=== PATIENT | female | born 1950 | race Caucasian/White ===

== ENCOUNTER 2016-05-18 13:52 | Inpatient (IN) | payer BC, MEDICARE ==
[~2016-05-18 13:52] MED LIST: ADVAIR 1001 DISK W/D; ADVAIR 2501 DISK W/D; ALBUTEROL17 GM; CLARITIN-D1 TAB.SR; SINGULAIR10 MG; XALATAN2.5 ML
[2016-05-18] MEDS ORDERED: SINGULAIR10 M1 PO (14:25)
[2016-05-18] MEDS ORDERED: ADVAIR 100-501 EACH PO (14:25)
[2016-05-18] MEDS ORDERED: CLARITIN-D 241 EAC2 PO (14:26)
[2016-05-18] MEDS ORDERED: XALATAN2.5 M1 LEFT EYE (14:27)
[2016-05-18] MEDS ORDERED: PROAIR RESPICL90 MCG INH (14:28)
[2016-05-18] MEDS ORDERED: PRAVACHOL40 M1 PO (14:37)
[2016-05-18] MEDS ORDERED: GLUCOPHAGE500 M3 PO (14:50)
[2016-05-18] MEDS ORDERED: PRINIVIL5 M1 PO (14:50)
[2016-05-18 17:55] LABS: ANION GAP 10 mmol/L (0-20); BLOOD UREA NITROGEN 22 mg/dl (6-24); CALCIUM 8.3 mg/dl (8.5-10.5); CARBON DIOXIDE-VENOUS 25 mmol/L (22-32); CHLORIDE 98 mmol/l (96-110); CREATININE 1.41 mg/dl (0.50-1.10); GLUCOSE 210 mg/dL (70-110); PHOSPHOROUS 2.3 mg/dl (2.5-4.9); POTASSIUM 4.4 mmol/L (3.7-5.1); SODIUM 129 mmol/L (135-145); eGFR VALUE FOR BLACK 45 mL/Min
[2016-05-18 17:59] LABS: TSH-THYROID STIMULATING HORM. 2.58 uIU/ml (0.40-3.80)
[2016-05-18 18:04] LABS: OSMOLALITY 274 mOsm/kg (275-295)
[2016-05-19 07:11] LABS: ALB/GLOB RATIO 0.5 (0.8-2.0); ALBUMIN 2.1 g/dl (3.5-5.0); ALKALINE PHOSPHATASE 219 U/L (33-138); ALT/SGPT 60 U/L (12-78); ANION GAP 13 mmol/L (0-20); AST/SGOT 46 U/L (10-40); BILIRUBIN,TOTAL 0.6 mg/dl (0-1.5); BLOOD UREA NITROGEN 21 mg/dl (6-24); CALCIUM 8.2 mg/dl (8.5-10.5); CARBON DIOXIDE-VENOUS 23 mmol/L (22-32); CHLORIDE 104 mmol/l (96-110); CREATININE 1.25 mg/dl (0.50-1.10); GLUCOSE 175 mg/dL (70-110); POTASSIUM 4.1 mmol/L (3.7-5.1); SODIUM 136 mmol/L (135-145); eGFR VALUE FOR BLACK 52 mL/Min
[2016-05-19 07:16] LABS: BASO % 0.3 % (0-2); EOS % 1.6 % (0-7); EOSINOPHIL ABSOLUTE COUNT 0.1 tho/cmm (0.0-0.7); HCT-HEMATOCRIT 31.8 % (34.0-49.0); HGB-HEMOGLOBIN 11.3 gm/dl (12.0-15.5); IMMATURE GRANULOCYTES ABSOLUTE 0.03 tho/cmm (0-0.03); IMMATURE GRANULOCYTES PERCENT 0.4 % (0-0.3); LYMPH % 15.1 % (20-45); LYMPH ABSOLUTE COUNT 1.1 tho/cmm (0.8-4.5); MCH (MEAN CORPUSCULAR HGB) 29.9 pg (28.0-32.0); MCHC MEAN CORPUSCULAR HGB CONC 35.5 % (32.0-36.0); MCV (MEAN CELL VOLUME) 84.1 fl (82.0-96.0); MEAN PLATELET VOLUME 9.7 cmc (9.4-12.4); MONO % 10.9 % (0-12); MONOCYTE ABSOLUTE COUNT 0.8 tho/cmm (0.0-1.2); NEUTROPHIL ABSOLUTE COUNT 5.1 tho/cmm (1.6-8.0); NEUTROPHIL-AUTOMATED 5.1 tho/cmm (1.6-8.0); NEUTROPHILS % 71.7 % (40-80); PLATELET COUNT 186 tho/cmm (150-450); RED BLOOD COUNT 3.78 mil/cmm (4.00-5.20); RED CELL DISTRIBUTION WIDTH 14.1 % (12.4-16.4); WHITE BLOOD COUNT 7.1 tho/cmm (4.0-10.0)
[2016-05-20 12:33] LABS: URINE APPEARANCE CLEAR; URINE BILIRUBIN NEGATIVE (NEG); URINE BLOOD MODERATE (NEG); URINE COLOR YELLOW; URINE GLUCOSE (UA) MODERATE (NEG); URINE KETONE NEGATIVE (NEG); URINE LEUKOCYTE ESTERASE POSITIVE (NEG); URINE NITRITE NEGATIVE (NEG); URINE PROTEIN MODERATE (NEG)
[2016-05-20 12:48] LABS: URINE TOTAL PROTEIN-RANDOM 38.6 mg/dl (<11.8)
[2016-05-20 12:51] LABS: URINE EPITHELIAL CELLS 0-1 /[HPF] (0-10); URINE RBC 0-4 /[HPF] (0-5)
[2016-05-20 13:15] LABS: URINE PRT/CR RATIO 1.14 Ratio (0.0-0.20)
[2016-05-20 13:42] LABS: ANION GAP 11 mmol/L (0-20); BLOOD UREA NITROGEN 18 mg/dl (6-24); CALCIUM 8.2 mg/dl (8.5-10.5); CARBON DIOXIDE-VENOUS 27 mmol/L (22-32); CHLORIDE 108 mmol/l (96-110); CREATININE 1.05 mg/dl (0.50-1.10); GLUCOSE 167 mg/dL (70-110); POTASSIUM 3.8 mmol/L (3.7-5.1); SODIUM 142 mmol/L (135-145); eGFR VALUE FOR BLACK 64 mL/Min
[2016-05-20] MEDS ORDERED: GLUCOPHAGE500 M3 PO (13:55)
[2016-05-20] MEDS ORDERED: AMARYL2 M1 PO (14:00)
[2016-05-20] MEDS ORDERED: CIPRO250 M2 PO (14:07)
== END 2016-05-20 14:50 | DRG 641 ==
LOC: 5WE 13:52
PROVIDERS: Internal Medicine; Nurse Practitioner; ADMIT Family Medicine
DX: E87.1 Hypo-osmolality and hyponatremia (principal); N17.9 Acute kidney failure, unspecified; N39.0 Urinary tract infection, site not specified; K80.20 Calculus of gallbladder without cholecystitis without obstruction; J45.909 Unspecified asthma, uncomplicated; W18.30XA Fall on same level, unspecified, initial encounter; Z79.84 Long term (current) use of oral hypoglycemic drugs; E11.65 Type 2 diabetes mellitus with hyperglycemia; R53.1 Weakness
CPT/HCPCS: J1650; J1815; J7030; Q9967